=== PATIENT | female | born 1935 | race Caucasian/White ===

== ENCOUNTER 2016-11-25 12:05 | Inpatient (IN) | payer MEDICARE ==
[~2016-11-25] VITALS: Ht 170.2 cm; Wt 67.8 kg
[2016-11-25 12:39] VITALS: BP 149/68; PULSE 80; RESP 16; TEMP 98.4; O2SAT 99
[2016-11-25] MEDS ORDERED: IRBE150T15 PO (12:39)
[2016-11-25 12:58] LABS: AUTOMATED NEUTROPHIL # 9.9 TH/MM3 (1.8-7.7); BASOPHIL # 0.5 TH/MM3 (0-0.2); BASOPHIL % 3.7 % (0.0-2.0); EOSINOPHIL % 0.2 % (0.0-4.0); HEMO FLAGS DIFF FINAL; LYMPH % 8.5 % (9.0-44.0); LYMPHOCYTE # 1.1 TH/MM3 (1.0-4.8); MEAN CELL VOLUME 85.6 FL (80.0-100.0); MEAN CORPUSCULAR HGB CONC 32.8 % (32.0-36.0); NEUT % 78.6 % (16.0-70.0); PLATELET COUNT 180 TH/MM3 (150-450); RED CELL DISTRIBUTION WIDTH 13.9 % (11.6-17.2); WHITE BLOOD COUNT 12.6 TH/MM3 (4.0-11.0)
[2016-11-25 13:05] LABS: CHLORIDE 106 MEQ/L (98-107); POTASSIUM 3.7 MEQ/L (3.5-5.1); SODIUM (NA) 139 MEQ/L (136-145)
[2016-11-25 13:09] LABS: ANION GAP 7 MEQ/L (5-15); BICARBONATE 26.1 MEQ/L (21.0-32.0); BLOOD UREA NITROGEN 23 MG/DL (7-18)
[2016-11-25 13:12] LABS: ALT (GPT) 18 U/L (10-53); AST (GOT) 17 U/L (15-37); GLOMERULAR FILTRATION RATE 82 ML/MIN (>89)
[2016-11-25 13:13] LABS: TOTAL BILIRUBIN ADULT 0.7 MG/DL (0.2-1.0)
[2016-11-25 13:15] LABS: ALKALINE PHOSPHATASE 50 U/L (45-117)
--- NOTE | 2016-11-25 13:26 | PD ---
HPI Chief Complaint: Altered Mental Status Time Seen by Provider: 12:21 Travel History International Travel<30 days: No Contact w/Intl Traveler<30days: No Traveled to known affect area: No History of Present Illness HPI This is an 81-year-old female who presents to the emergency department with confusion. The patient is unable to provide much history. She says she doesn' t know who called and she says she feels fine. Per [facility] someone called and told them that she was more confused than usual. PFSH Past Medical History Diminished Hearing: No Hypertension: Yes Tetanus Vaccination: Unknown Influenza Vaccination: No ?: Not Past Surgical History Oral Surgery: Yes Social History Alcohol Use: Yes (rarely) Tobacco Use: No Substance Use: No Allergies-Medications (Allergen,Severity, Reaction): Coded Allergies: No Known Allergies (Unverified , 11/25/16) Reported Meds & Prescriptions Reported Meds & Active Scripts Active Reported Irbesartan 150 Mg Tab 150 Mg PO DAILY Review of Systems ROS Limitations: Poor Historian Physical Exam Narrative GENERAL:Well appearing, no acute distress SKIN: Focused skin assessment warm and dry. HEAD: Atraumatic. Normocephalic. EYES: Pupils equal and round. No injection or drainage. ENT: Moist mucous membranes NECK: Trachea midline. CARDIOVASCULAR: Regular rate and rhythm. No murmur appreciated. RESPIRATORY: Clear to auscultation. Breath sounds equal bilaterally. GASTROINTESTINAL: Abdomen soft, non-tender, nondistended. MUSCULOSKELETAL: No obvious deformities. NEUROLOGICAL: Confused but oriented to person and place, thinks it is 2018 but know the month. Knows she is at [facility].Can't describe details of her evening or how she arrived here. Gets confused, trails off tangentially, and has some word finding difficulty. No dysarthria. No obvious cranial nerve deficits. No upper or lower extremity drift. No upper extremity ataxia. PSYCHIATRIC: Appropriate mood and affect; insight and judgment normal. Data Data Last Documented VS Vital Signs Date Time Temp Pulse Resp B/P (MAP) Pulse Ox O2 Delivery O2 Flow Rate FiO2 11/25/16 15:05 76 16 139/67 (91) 99 11/25/16 12:[address] Brain W/O Iv Contrast(Rout) (11/25/16 ) Complete Blood Count With Diff (11/25/16 12:21) Comprehensive Metabolic Panel (11/25/16 12:21) ^ Insert Iv (11/25/16 12:21) Urinalysis - C+S If Indicated (11/25/16 12:21) Cath For Specimen (11/25/16 13:53) Sodium Chlor 0.9% 1000 Ml Inj (Ns 1000 M (11/25/16 15:00) Admit Order (Ed Use Only) (11/25/16 15:56) Labs Laboratory Tests Test 11/25/16 12:50 11/25/16 15:34 White Blood Count 12.6 TH/MM3 Red Blood Count 4.20 MIL/MM3 Hemoglobin 11.8 GM/DL Hematocrit 36.0 % Mean Corpuscular Volume 85.6 FL Mean Corpuscular Hemoglobin 28.0 PG Mean Corpuscular Hemoglobin Concent 32.8 % Red Cell Distribution Width 13.9 % Platelet Count 180 TH/MM3 Mean Platelet Volume 9.9 FL Neutrophils (%) (Auto) 78.6 % Lymphocytes (%) (Auto) 8.5 % Monocytes (%) (Auto) 9.0 % Eosinophils (%) (Auto) 0.2 % Basophils (%) (Auto) 3.7 % Neutrophils # (Auto) 9.9 TH/MM3 Lymphocytes # (Auto) 1.1 TH/MM3 Monocytes # (Auto) 1.1 TH/MM3 Eosinophils # (Auto) 0.0 TH/MM3 Basophils # (Auto) 0.5 TH/MM3 CBC Comment DIFF FINAL Differential Comment Blood Urea Nitrogen 23 MG/DL Creatinine 0.69 MG/DL Random Glucose 121 MG/DL Total Protein 7.3 GM/DL Albumin 3.6 GM/DL Calcium Level 8.9 MG/DL Alkaline Phosphatase 50 U/L Aspartate Amino Transf (AST/SGOT) 17 U/L Alanine Aminotransferase (ALT/SGPT) 18 U/L Total Bilirubin 0.7 MG/DL Sodium Level 139 MEQ/L Potassium Level 3.7 MEQ/L Chloride Level 106 MEQ/L Carbon Dioxide Level 26.1 MEQ/L Anion Gap 7 MEQ/L Estimat Glomerular Filtration Rate 82 ML/MIN [facility] Medical Decision Making Medical Screen Exam Complete: Yes Emergency Medical Condition: Yes Interpretation(s) Afebrile, no tachycardia, mild hypertension Leukocytosis 78% neutrophils Electrolytes are reassuring CT head is unremarkable Differential Diagnosis TIA, stroke, dementia, urinary tract infection Narrative Course This is an 81-year-old female who presents to the emergency department with increasing confusion. She is placed on a monitor and an IV was established. Labs are obtained which demonstrated a mild leukocytosis. CT of the head was unremarkable. Patient's friend came to the bedside and agrees that the patient is acting strangely, having some trouble with her speech and doesn't seem herself. I think the patient requires admission for stroke evaluation. Patient also likely doesn't belong in independent living and would benefit from assisted living if this is in fact just underlying dementia. Physician Communication Physician Communication Discussed with Dr. Kimbrough Diagnosis Primary Impression: Aphasia Admitting Information Admitting Physician Requests: Admit Unique Garcia MD Nov 25, 2016 13:26
--- NOTE | 2016-11-25 13:30 | RADRPT ---
EXAM DATE/TIME: 11/25/2016 13:16 [facility] COMPARISON: No previous studies available for comparison. INDICATIONS : Altered mental status. RADIATION DOSE: 59.28 CTDIvol (mGy) MEDICAL HISTORY : Hypertension. SURGICAL HISTORY : None. ENCOUNTER: Initial ACUITY: 1 day PAIN SCALE: 0/10 LOCATION: cranial TECHNIQUE: Multiple contiguous axial images were obtained of the head. Using automated exposure control and adj ustment of the mA and/or kV according to patient size, radiation dose was kept as low as reasonably a chievable to obtain optimal diagnostic quality images. DICOM format image data is available electro nically for review and comparison. FINDINGS: CEREBRUM: The ventricles are normal for age. No evidence of midline shift, mass lesion, hemorrhage or acute in farction. No extra-axial fluid collections are seen. POSTERIOR FOSSA: The cerebellum and brainstem are intact. The 4th ventricle is midline. The cerebellopontine angle i s unremarkable. EXTRACRANIAL: The visualized portion of the orbits is intact. SKULL: The calvaria is intact. No evidence of skull fracture. CONCLUSION: Negative for acute process. Gerardo Beaver MD FACR on November 25, 2016 at 13:28 Board Certified Radiologist. This report was verified electronically.
[2016-11-25] MEDS ORDERED: SODIUM CHLOR 0.9% 1000 ML INJ 1,000 ML IV ONE (15:00)
[2016-11-25 15:05] VITALS: BP 139/67; PULSE 76; RESP 16; O2SAT 99
[2016-11-25 15:54] LABS: BLOOD, URINE MOD (NEG); GLUCOSE,URINE NEG (NEG); KETONE, URINE NEG (NEG); NITRITE,URINE NEG (NEG); PH, URINE 6.5 (5.0-8.5)
[2016-11-25 16:01] LABS: RBC, URINE 0-3 /hpf (0-3); URINE COLOR YELLOW (YELLW/STRAW)
[2016-11-25 16:02] LABS: COMMENT (UR) CULT NOT INDICATED; CULTURE IF INDICATED CULT NOT INDICATED; SQUAMOUS EPITHELIAL CELL URINE 0-5 /hpf (0-5)
[2016-11-25 16:13] VITALS: BP 130/63; PULSE 86; RESP 18; O2SAT 98
[2016-11-25 17:28] VITALS: BP 133/72; PULSE 76; RESP 24; TEMP 97.7; O2SAT 97
[2016-11-25] MEDS ORDERED: ENALAPRILAT 1.25 MG/ML VIAL IV PUSH PRN (18:00)
[2016-11-25] MEDS ORDERED: SODIUM CHLORIDE 0.9% FLUSH 5 ML FLUSH IV FLUSH PRN (18:00)
[2016-11-25] MEDS ORDERED: DEXTROSE 50% IN WATER 50 ML VIAL(D50) IV PUSH PRN (18:00)
[2016-11-25] MEDS ORDERED: GLUCAGON 1 MG/ML VIAL OTHER PRN (18:00)
[2016-11-25] MEDS ORDERED: LABETALOL HCL 100 MG/20 ML VIAL IV PUSH PRN (18:00)
--- NOTE | 2016-11-25 18:40 | HHI.HP ---
[facility] Estrella Ferrell MD Admission Diagnosis aphasia Diagnoses: (1) Confusion Diagnosis: Principal (2) Aphasia Diagnosis: Principal Chief Complaint: Patient brought here because of "difference of opinion about my confusion" Travel History International Travel<30 Days: No Contact w/Intl Traveler <30 Da: No Traveled to Known Affected Are: No History of Present Illness Written by Bon Rodrigues, acting as scribe for Dr. Zambrano on 11/25/16 at 18:32. 81-year-old female with known history of hypertension who was brought to the hospital by [facility] because of confusion. Patient denies any symptoms at this time. However records indicate that she does not know who called the ambulance or why she is at the hospital because she feels fine. Records indicate that someone called [facility] again told them that she appears to be more confused than usual. Patient is alert person, November, not the year, and she does not know what place she is in. A friend is at bedside, patient does know her friend's name. Her friend is indicate that she does appearing more confused than normal. Patient is having a difficult time and remembering things and delayed speech. However there is no slurred speech. Patient denies any symptoms. Denies any unilateral weakness, paresthesia, difficulty ambulation, facial droop. She did have a headache last night prior to going to bed. Patient had workup done emergency department without any significant abnormality. Is recommended by ER physician the patient be admitted for neurological workup. Review of Systems Neurologic: COMPLAINS OF: Speech Problems Except as stated in HPI: all other systems reviewed are Neg Past Family Social History Past Medical History Hypertension Past Surgical History Oral surgery Reported Medications Reported Meds & Active Scripts Active Reported Irbesartan 150 Mg Tab 150 Mg PO DAILY Allergies: Coded Allergies: No Known Allergies (Unverified , 11/25/16) Family History Reviewed and unremarkable Social History No indication of any tobacco or illicit drug use. Does drink alcohol rarely Physical Exam Vital Signs Vital Signs Date Time Temp Pulse Resp B/P (MAP) Pulse Ox O2 Delivery O2 Flow Rate FiO2 11/25/16 17:20 11/25/16 16:13 86 18 130/63 (85) 98 Room Air 11/25/16 15:05 76 16 139/67 (91) 99 11/25/16 12:39 98.4 80 16 149/68 (95) 99 Physical Exam GENERAL: Well-developed, well-nourished, in no acute distress. alert and orientated to person, month, not to year or place. She does know her friends named that is sitting next to her HEENT: Head is normocephalic without any lesions or masses noted. Facial features are symmetric. Eyes: Pupils equal round reactive to light. Extraocular muscles are intact. Conjunctivae were clear. Oropharyngeal: Pharynx without any erythema edema. Tongue is midline without deviation. Buccal mucosa is moist without any masses or lesions NECK: Supple without any masses. Trachea midline no deviation. No JVD, no bruits are appreciated CARDIAC: Regular rhythm, regular rate. S1/S2 are heard. No murmurs gallops or rubs. LUNGS: Clear to auscultation bilaterally. No wheeze, rhonchi or rales. No use of accessory muscles on inspiration or expiration. ABDOMEN: Soft, nontender. Nondistended. Bowel sounds heard in all 4 quadrants. No organomegaly or masses. Negative rebound, negative guarding EXTREMITIES: No edema, pulses are equal bilaterally. No cyanosis or clubbing NEUROLOGY: Mood and affect appear appropriate. Cranial nerves II through XII grossly intact. Muscle strength 5/5 in upper and lower extremities bilaterally. Deep tendon reflexes are 2+ in upper and lower extremities bilaterally. Negative [facility] Laboratory Tests Test 11/25/16 12:50 11/25/16 15:34 White Blood Count 12.6 Red Blood Count 4.20 Hemoglobin 11.8 Hematocrit 36.0 Mean Corpuscular Volume 85.6 Mean Corpuscular Hemoglobin 28.0 Mean Corpuscular Hemoglobin Concent 32.8 Red Cell Distribution Width 13.9 Platelet Count 180 Mean Platelet Volume 9.9 Neutrophils (%) (Auto) 78.6 Lymphocytes (%) (Auto) 8.5 Monocytes (%) (Auto) 9.0 Eosinophils (%) (Auto) 0.2 Basophils (%) (Auto) 3.7 Neutrophils # (Auto) 9.9 Lymphocytes # (Auto) 1.1 Monocytes # (Auto) 1.1 Eosinophils # (Auto) 0.0 Basophils # (Auto) 0.5 CBC Comment DIFF FINAL Differential Comment Blood Urea Nitrogen 23 Creatinine 0.69 Random Glucose 121 Total Protein 7.3 Albumin 3.6 Calcium Level 8.9 Alkaline Phosphatase 50 Aspartate Amino Transf (AST/SGOT) 17 Alanine Aminotransferase (ALT/SGPT) 18 Total Bilirubin 0.7 Sodium Level 139 Potassium Level 3.7 Chloride Level 106 Carbon Dioxide Level 26.1 Anion Gap 7 Estimat Glomerular Filtration Rate 82 Urine Color YELLOW Urine Turbidity CLEAR Urine pH 6.5 Urine Specific [place] 1.024 Urine Protein NEG Urine Glucose (UA) NEG Urine Ketones NEG Urine Occult Blood MOD Urine Nitrite NEG Urine Bilirubin NEG Urine Leukocyte Esterase TRACE Urine RBC 0-3 Urine WBC 3-5 Urine Squamous Epithelial Cells 0-5 Microscopic Urinalysis Comment CULT NOT INDICATED Result Diagram: 11/25/16 1250 11/25/16 1250 Imaging Last Impressions Head CT 11/25/16 0000 Signed Impressions: Service Date/Time: Friday, November 25, 2016 13:16 - CONCLUSION: Negative for acute process. Gerardo Beaver MD FACR Caprini VTE Risk Assessment Caprini VTE Risk Assessment: Mod/High Risk (score >= 2) Caprini Risk Assessment Model Point Value = 1 Point Value = 2 Point Value = 3 Point Value = 5 Age 41-60 Minor surgery BMI > 25 kg/m2 Swollen legs Varicose veins or History of unexplained or recurrent spontaneous Oral contraceptives or hormone replacement Sepsis (< 1 month) Serious lung disease, including pneumonia (< 1 month) Abnormal pulmonary function Acute myocardial infarction Congestive heart failure (< 1 month) History of inflammatory bowel disease Medical patient at bed rest Age 61-74 Arthroscopic surgery Major open surgery (> 45 min) Laparoscopic surgery (> 45 min) Malignancy Confined to bed (> 72 hours) Immobilizing plaster cast Central venous access Age >= 75 History of VTE Family history of VTE Factor V Leiden Prothrombin [id number] Lupus anticoagulant Anticardiolipin antibodies Elevated serum homocysteine Heparin-induced thrombocytopenia Other congenital or acquired thrombophilia Stroke (< 1 month) Elective arthroplasty Hip, pelvis, or leg fracture Acute spinal cord injury (< 1 month) Prophylaxis Regimen Total Risk Factor Score Risk Level Prophylaxis Regimen 0-1 Low Early ambulation 2 Moderate Order ONE of the following: *Sequential Compression Device (SCD) *Heparin 5000 units SQ BID 3-4 Higher Order ONE of the following medications: *Heparin 5000 units SQ TID *Enoxaparin/Lovenox 40 mg SQ daily (WT < 150 kg, CrCl > 30 mL/min) *Enoxaparin/Lovenox 30 mg SQ daily (WT < 150 kg, CrCl > 10-29 mL/min) *Enoxaparin/Lovenox 30 mg SQ BID (WT < 150 kg, CrCl > 30 mL/min) AND/OR *Sequential Compression Device (SCD) 5 or more Highest Order ONE of the following medications: *Heparin 5000 units SQ TID (Preferred with Epidurals) *Enoxaparin/Lovenox 40 mg SQ daily (WT < 150 kg, CrCl > 30 mL/min) *Enoxaparin/Lovenox 30 mg SQ daily (WT < 150 kg, CrCl > 10-29 mL/min) *Enoxaparin/Lovenox 30 mg SQ BID (WT < 150 kg, CrCl > 30 mL/min) AND *Sequential Compression Device (SCD) Assessment and Plan Assessment and Plan Stroke like symptoms Unknown etiology this time, no signs of any infection, will need to rule out neurological component such as CVA, TIA CT scan does not indicate any acute abnormality We'll obtain MRI/MRA, carotid ultrasound, echocardiogram We'll obtain further laboratory studies to include B12, folate, sedimentation rate, RPR, lipid panel We'll get PT/OT/ST evaluations Start aspirin 160 mg daily Start Lipitor 10 mg nightly Permissive hypertension Hypertension Permissive at this time Hold home medication 48 hours DVT prevention Sequential compression devices This note was transcribed by jus Rodrigues. I, Jerald Zambrano, personally performed the history, physical exam, and medical decision making; and confirmed the accuracy of information in the transcribed note. Authenticated by Jerald Zambrano on 11/25/16 at 1855. All orders entered by Zachary Rodrigues were at my discretion. Physician Certification 2 Midnight Certification Type: Admission for Inpatient Services Order for Inpatient Services The services are ordered in accordance with Medicare regulations or non- Medicare payer requirements, as applicable. In the case of services not specified as inpatient-only, they are appropriately provided as inpatient services in accordance with the 2-midnight benchmark. Estimated LOS (days): 2 days is the estimated time the patient will need to remain in the hospital, assuming treatment plan goals are met and no additional complications. Post-Hospital Plan: Not yet determined Bon Rodrigues Nov 25, 2016 18:40 Jerlad Zambrano MD Dec 01, 2016 08:15
[2016-11-25 19:03] LABS: CREATINE KINASE 113 U/L (26-192)
[2016-11-25 20:00] VITALS: BP 131/49; PULSE 63; RESP 20; TEMP 98.3; O2SAT 96
[2016-11-25] MEDS: ASPIRIN 81 MG CHEW TAB PO SCH (20:51)
[2016-11-25] MEDS: SODIUM CHLORIDE 0.9% FLUSH 5 ML FLUSH IV FLUSH SCH (20:52)
[2016-11-25] MEDS: INSULIN ASPART SUPPLEMENTAL SCALE SQ SCH (20:52)
[2016-11-25] MEDS: ATORVASTATIN 10 MG TAB PO SCH (20:52)
[2016-11-25 20:55] VITALS: O2SAT 99
[2016-11-26] VITALS (9 sets, daily range): BP systolic 100–129; BP diastolic 47–61; PULSE 52–98; RESP 16–20; TEMP 96.2–98.7; O2SAT 94–99
[2016-11-26 00:19] LABS: CREATINE KINASE 122 U/L (26-192)
[2016-11-26] MEDS: INSULIN ASPART SUPPLEMENTAL SCALE SQ SCH ×4 (08:00→21:00)
[2016-11-26] MEDS: ASPIRIN 81 MG CHEW TAB PO SCH (08:51)
[2016-11-26] MEDS: SODIUM CHLORIDE 0.9% FLUSH 5 ML FLUSH IV FLUSH SCH ×2 (08:52→21:00)
[2016-11-26 10:17] LABS: HDL CHOLESTEROL 67.9 MG/DL (40.0-60.0)
--- NOTE | 2016-11-26 10:28 | RADRPT ---
EXAM DATE/TIME: 11/26/2016 10:04 [facility] COMPARISON: No previous studies available for comparison. INDICATIONS : CVA. Right sided weakness. MEDICAL HISTORY : Hypertension. SURGICAL HISTORY : Cataracts. ENCOUNTER: Initial ACUITY: 1 day PAIN SCORE: 0/10 LOCATION: Head. Please note a normal MRA of the brain does not entirely exclude the possibility of a small aneurysm, nor the possibility of distal intracranial vessel disease. TECHNIQUE: 3D time of flight MRA was performed. Source images, multiplanar STS MIP, and 3D volume MIP reconstru ctions were reviewed. FINDINGS: There is excellent visualization of the major intracranial arteries out to the second-order branch ve ssels. There is no evidence for aneurysm, vessel truncation or stenosis, and no evidence for vascula r malformation. CONCLUSION: 1. Unremarkable MR angiography of the brain. Eliceo Wynn MD on November 26, 2016 at 10:25 Board Certified Radiologist. This report was verified electronically.
--- NOTE | 2016-11-26 10:30 | RADRPT ---
EXAM DATE/TIME: 11/26/2016 10:04 [facility] COMPARISON: No previous studies available for comparison. INDICATIONS : CVA. Right sided weakness. MEDICAL HISTORY : Hypertension. SURGICAL HISTORY : Cataracts. ENCOUNTER: Initial ACUITY: 1 day PAIN SCORE: 0/10 LOCATION: Head. TECHNIQUE: Multiplanar, multisequence MRI of the brain was performed without contrast. FINDINGS: MRI of the brain is performed in sagittal, axial and coronal planes. The craniocervical junction and midline structures are unremarkable. Diffusion weighted images demonstrate no abnormality. There is n o evidence of acute cortical infarction, acute hemorrhage, mass effect or midline shift is seen. Post erior fossa structures are unremarkable. There is periventricular hyperintensity on the T2 weighted i mages consistent with small vessel vascular disease significantly more than expected in a patient of this age. CONCLUSION: 1. No evidence of acute intracranial pathology. Chronic ischemic changes as above. Eliceo Wynn MD on November 26, 2016 at 10:27 Board Certified Radiologist. This report was verified electronically.
--- NOTE | 2016-11-26 10:58 | RADRPT ---
EXAM DATE/TIME: 11/26/2016 07:57 [facility] COMPARISON: No previous studies available for comparison. INDICATIONS : Cerebrovascular accident. MEDICAL HISTORY : Hypertension. Alcohol use. SURGICAL HISTORY : Oral surgery. ENCOUNTER: Initial ACUITY: 2 days PAIN SCORE: 0/10 LOCATION: Bilateral neck PEAK SYSTOLIC VELOCITIES (cm/sec): ICA/CCA RATIO: Right: 0.9 Left: 0.9 ICA: Right: 78 Left: 87 CCA: Right: 90 Left: 100 ECA: Right: 80 Left: 84 VERTEBRAL: Right: 63 antegrade Left: 54 antegrade Elevated flow velocities and ICA/CCA ratios have been found to correlate with increased degrees of vessel stenosis, calculated as percentage of diameter relative to a normal segment of distal ICA/CCA FINDINGS: RIGHT CAROTID: No significant stenosis is visualized. There is minimal calcified atherosclerotic plaque. The wavefo rosi are within normal limits. LEFT CAROTID: No significant stenosis is visualized. There is minimal calcified atherosclerotic plaque. The wavefor ms are within normal limits. VERTEBRAL ARTERIES: Antegrade flow is seen in both vertebral arteries. MISCELLANEOUS: None. CONCLUSION: 1. Minimal atherosclerotic plaquing seen at the bifurcations. 2. No hemodynamically significant carotid artery stenosis identified. Urbano Beaver MD on November 26, 2016 at 10:55 Board Certified Radiologist. This report was verified electronically.
--- NOTE | 2016-11-26 12:42 | ECHRPT ---
Indication: cva/tia CONCLUSIONS The left ventricular systolic function is low normal with an estimated ejection fraction in the rang e of 50- 55%. Normal left ventricular size. Mild mitral valve regurgitation. Mild aortic valve regurgitation. There is mild tricuspid valve regurgitation. BP: / HR: Rhythm: MEASUREMENTS (Male / Female) Normal Values Technical Quality:Good 2D ECHO LV Diastolic Diameter PLAX 4.9 cm 4.2 - 5.9 / 3.9 - 5.3 cm LV Systolic Diameter PLAX 3.9 cm IVS Diastolic Thickness 1.2 cm 0.6 - 1.0 / 0.6 - 0.9 cm LVPW Diastolic Thickness 1.1 cm 0.6 - 1.0 / 0.6 - 0.9 cm LV Relative Wall Thickness 0.5 RV Internal Dim ED PLAX 3.2 cm M-MODE Aortic Root Diameter MM 3.0 cm LA Systolic Diameter MM 3.5 cm LA Ao Ratio MM 1.2 AV Cusp Separation MM 2.1 cm DOPPLER AI Peak Velocity 344.0 cm/s AI Peak Gradient 47.3 mmHg AI Pressure Half Time 696.0 ms Mitral E Point Velocity 50.3 cm/s Mitral A Point Velocity 59.2 cm/s Mitral E to A Ratio 0.8 LV E' Lateral Velocity 8.9 cm/s Mitral E to LV E' Lateral Ratio 5.7 LV E' Septal Velocity 7.4 cm/s Mitral E to LV E' Septal Ratio 6.8 TR Peak Velocity 261.0 cm/s TR Peak Gradient 27.2 mmHg Right Atrial Pressure 10.0 mmHg Pulmonary Artery Systolic Pressu 37.2 mmHg Right Ventricular Systolic Press 37.2 mmHg FINDINGS LEFT VENTRICLE The left ventricular systolic function is low normal with an estimated ejection fraction in the rang e of 50- 55%. Normal left ventricular size. RIGHT VENTRICLE Normal right ventricular size and systolic function. LEFT ATRIUM The left atrial size is normal. RIGHT ATRIUM The right atrial size is normal. ATRIAL SEPTUM Normal atrial septal thickness without atrial level shunting by limited color doppler interrogation. AORTA The aortic root and proximal ascending aorta are normal in size on limited imaging. MITRAL VALVE Structurally normal mitral valve. Mild mitral valve regurgitation. AORTIC VALVE Trileaflet aortic valve. Mild aortic valve regurgitation. TRICUSPID VALVE Structurally normal tricuspid valve. There is mild tricuspid valve regurgitation. PULMONARY VALVE No pulmonary valve regurgitation or stenosis. VESSELS The inferior vena cava is normal in size. PERICARDIUM No pericardial effusion. Gordon Luo MD, FACC (Electronically Signed) Final Date:26 November 2016 12:41
--- NOTE | 2016-11-26 15:50 | HHI.FF ---
Face to Face Verification Diagnosis: (1) Dementia (2) Confusion (3) Aphasia Speech Therapy Order: To Improve: Speech and communication skills, Cognitive skills Home Health Nursing Order: Signs/symptoms of disease process Nursing assessment with vital signs I have seen patient Tarah Sharp on 11/26/16. My clinical findings support the need for the requested home health care services because: Impaired cognition/judgement I certify that my clinical findings support that this patient is homebound because: Impaired cognitive ability/safety Jerald Zambrano MD Nov 26, 2016 15:50
--- NOTE | 2016-11-26 16:47 | HHI.PR ---
Subjective Remarks No acute deterioration since last night per nursing. Stroke workup has been negative. Patient herself denies any new complaints. Discussed with both PT and OT, stable to go home from their standpoint but but they do note very concerning difficulty finding words and loss and her thought processes. Objective Vital Signs Date Time Temp Pulse Resp B/P (MAP) Pulse Ox O2 Delivery O2 Flow Rate FiO2 11/26/16 12:00 96.3 57 18 100/53 (69) 98 11/26/16 08:37 98.0 98 16 104/50 (68) 98 11/26/16 07:44 96 21 11/26/16 04:00 98.7 52 18 100/48 (65) 94 11/26/16 00:00 56 11/26/16 00:00 98.0 56 16 102/47 (65) 94 11/25/16 20:55 99 21 11/25/16 20:00 63 11/25/16 20:00 98.3 63 20 131/49 (76) 96 11/25/16 17:28 97.7 76 24 133/72 (92) 97 11/25/16 17:20 I/O 11/25/16 11/25/16 11/25/16 11/26/16 11/26/16 11/26/16 06:59 14:59 22:59 06:59 14:59 22:59 Intake Total 1000 ml 240 ml 750 ml Balance 1000 ml 240 ml 750 ml Intake Oral 240 ml 750 ml IV Total 1000 ml # Voids 2 # Bowel Movements 1 Result Diagram: 11/25/16 1250 11/25/16 1250 Imaging Last Impressions Head Magnetic Resonance Angiography 11/26/16 0000 Signed Impressions: Service Date/Time: November 10:04 - CONCLUSION: 1. Unremarkable MR angiography of the brain. Eliceo Wynn MD Carotid Artery Ultrasound 11/26/16 0000 Signed Impressions: Service Date/Time: November 07:57 - CONCLUSION: 1. Minimal atherosclerotic plaquing seen at the bifurcations. 2. No hemodynamically significant carotid artery stenosis identified. Urbano Beaver MD Brain MRI 11/26/16 0000 Signed Impressions: Service Date/Time: November 10:04 - CONCLUSION: 1. No evidence of acute intracranial pathology. Chronic ischemic changes as above. Eliceo Wynn MD Head CT 11/25/16 0000 Signed Impressions: Service Date/Time: Friday, November 25, 2016 13:16 - CONCLUSION: Negative for acute process. Gerardo Beaver MD FACR Objective Remarks NAD unlabored breathing AOX3 no facial droop, no slurred speech She seems to have an awfully great amount of difficulty finding her words but does not have any slurred speech. A/P Assessment and Plan Aphasia Stroke workup negative, no significant lab abnormalities. We'll have speech reevaluate the patient for cognition deficits. Spoke extensively with patient's [id number], case management, and speech therapy, - agree that the patient is not a safe discharge given that she lives by herself and there is no family nearby. We'll arrange for home care since the patient has impaired cognition as evident on physical exam and throughout multiple evaluations of other rehabilitation modalities. aspirin 160 mg daily Lipitor 10 mg nightly Hypertension resume home medication 48 hours DVT prevention Sequential compression devices Jerald Zambrano MD Nov 26, 2016 16:47
[2016-11-26 20:42] LABS: FREE T3 1.93 PG/ML (2.18-3.98); FREE T4 0.99 NG/DL (0.76-1.46)
[2016-11-26] MEDS: ATORVASTATIN 10 MG TAB PO SCH (22:19)
[2016-11-26 22:47] LABS: HEMOGLOBIN A1b 1.6 %; HEMOGLOBIN Ao 85.4 %; HEMOGLOBIN LA1C 2.1 %; HEMOGLOBIN P3 5.3 %
[2016-11-27] VITALS (7 sets, daily range): BP systolic 118–150; BP diastolic 59–82; PULSE 59–79; RESP 16–20; TEMP 95.6–97.9; O2SAT 96–100
[2016-11-27] MEDS: INSULIN ASPART SUPPLEMENTAL SCALE SQ SCH ×4 (08:00→21:00)
[2016-11-27] MEDS: ASPIRIN 81 MG CHEW TAB PO SCH (10:05)
[2016-11-27] MEDS: SODIUM CHLORIDE 0.9% FLUSH 5 ML FLUSH IV FLUSH SCH ×2 (10:05→21:00)
--- NOTE | 2016-11-27 12:08 | HHI.PR ---
Subjective Remarks No acute deterioration since last night per nursing. However speech therapy discussed with me that the patient is experiencing substantial thought disorganization and seems to lose track of her conversations. When I approach and even passed by the room the patient seems to be standing by the door staring into the hallway even after my visit with her. Family is unable to have her supervised at home at this time if she were to be discharged. During her orientation test, the patient is unable to adequately explain the reason for her admission, says that some people saw her and just decided to bring her to the hospital after she was trying to find her car keys in a parking lot. Objective Vital Signs Date Time Temp Pulse Resp B/P (MAP) Pulse Ox O2 Delivery O2 Flow Rate FiO2 11/27/16 08:55 97.9 59 16 150/78 (102) 99 11/27/16 04:00 97.6 67 20 140/66 (90) 99 11/27/16 00:00 97.7 67 20 118/59 (78) 100 11/26/16 22:00 62 11/26/16 20:50 98 21 11/26/16 20:00 97.8 56 20 129/61 (83) 99 11/26/16 16:00 96.2 59 18 101/49 (66) 99 I/O 11/26/16 11/26/16 11/26/16 11/27/16 11/27/16 11/27/16 06:59 14:59 22:59 06:59 14:59 22:59 Intake Total 240 ml 750 ml 240 ml Balance 240 ml 750 ml 240 ml Intake Oral 240 ml 750 ml 240 ml # Voids 2 2 2 # Bowel Movements 1 1 0 Result Diagram: 11/25/16 1250 11/25/16 1250 Objective Remarks NAD unlabored breathing AOX3 no facial droop, no slurred speech Still seems to have an awfully great amount of difficulty finding her words but does not have any slurred speech. A/P Assessment and Plan Aphasia Stroke workup negative, no significant lab abnormalities. RPR is negative. Cognitive deficits evident on speech eval, unsafe d/c for home by herself. Some concern for paranoid thoughts which is new problem seen per speech therapy , consulting psychiatry Hypertension home medications DVT prevention Sequential compression devices, early ambulation Jerald Zambrano MD Nov 27, 2016 12:08
[2016-11-27] MEDS: ATORVASTATIN 10 MG TAB PO SCH (21:48)
[2016-11-28 00:23] VITALS: BP 135/76; PULSE 80; RESP 16; TEMP 97.9; O2SAT 100
[2016-11-28 04:24] VITALS: BP 134/64; PULSE 63; RESP 18; TEMP 98; O2SAT 99
[2016-11-28 07:50] VITALS: BP 144/68; PULSE 68; RESP 20; TEMP 96; O2SAT 99
[2016-11-28] MEDS: INSULIN ASPART SUPPLEMENTAL SCALE SQ SCH (08:00)
[2016-11-28] MEDS: ASPIRIN 81 MG CHEW TAB PO SCH (08:41)
[2016-11-28 11:50] VITALS: BP 148/71; RESP 60; TEMP 96.2; O2SAT 99
--- NOTE | 2016-11-28 12:55 | PD.PSY.CON ---
Provisional Diagnosis Admission Date Nov 25, 2016 at 15:57 [place] I. Unspecified psychosis, r/o dementia [place] II. Deferred History of Present Illness Service Psychiatry Consult Requested By Reason for Consult Psychosis Primary Care Physician Estrella Ferrell MD HPI The patient is a 81-year-old woman, domiciled alone in [place], single, without any previous psychiatric history, no previous suicidal attempts , no psychotropics, with medical history of hypertension who was brought to the hospital by [facility] because of confusion. Patient denies any symptoms at this time. Neurological and medical workup is negative at this moment. Consulted to psychiatry due to agitation, paranoia and disorganized behavior. Patient seen for psychiatric evaluation, patient is calm, cooperative and pleasant. Patient does not remember the reason she is in the hospital. In fact , the patient stated that she is in the [employer] and she is surrounded by students. She says that the reason she is here "I have to do some work with my kids". Patient says that today is December [id number]. She does not know who was the sack filler. She is able to repeat 3 words, but unable to recall in 5 minutes later. Her concentration and attention seems to be intact at this moment. She could spell the word world back and forth. She also was able to count backwards, starting 100 and subtracting by 7. Her abstraction, language, semantic memory, she is also to be intact. However executive function impaired, with a clock drawing and trail making test. Patient reports good mood, she says that she is happy to be here. She denies suicidal and homicidal ideation, she denies visual and auditory hallucinations. No delusions or paranoia elicited at this moment. However, as per nurse in charge report, the patient has been agitated, at times verbally hostile, very paranoid about the staff difficult to handle. She denies the use of alcohol and illicit drugs. Review of Systems Constitutional: DENIES: Diaphoretic episodes, Fatigue, Fever, Weight gain, Weight loss, Chills, Dizziness, Change in appetite, Night Sweats Endocrine: DENIES: Abnorml menstrual pattern, Heat/cold intolerance, Polydipsia , Polyuria, Polyphagia Eyes: DENIES: Blurred vision, Diplopia, Eye inflammation, Eye pain, Vision loss , Photosensitivity, Double Vision Ears, nose, mouth, throat: DENIES: Tinnitus, Hearing loss, Vertigo, Nasal discharge, Oral lesions, Throat pain, Hoarseness, Ear Pain, Running Nose, Epistaxis, Sinus Pain, Toothache, Odynophagia Respiratory: DENIES: Apneas, Cough, Snoring, Wheezing, Hemoptysis, Sputum production, Shortness of breath Cardiovascular: DENIES: Chest pain, Palpitations, Syncope, Dyspnea on Exertion , PND, Lower Extremity Edema, Orthopnea, Claudication Gastrointestinal: DENIES: Abdominal pain, Black stools, Bloody stools, Constipation, Diarrhea, Nausea, Vomiting, Difficulty Swallowing, Anorexia Genitourinary: DENIES: Abnormal vaginal bleeding, Dysmenorrhea, Dyspareunia, Sexual dysfunction, Urinary frequency, Urinary incontinence, Urgency, Hematuria , Dysuria, Nocturia, Vaginal discharge Musculoskeletal: DENIES: Joint pain, Muscle aches, Stiffness, Joint Swelling, Back pain, Neck pain Integumentary: DENIES: Abnormal pigmentation, Pruritus, Rash, Nail changes, Breast masses, Breast skin changes, Nipple discharge Hematologic/lymphatic: DENIES: Bruising, Lymphadenopathy Immunologic/allergic: DENIES: Eczema, Urticaria Neurologic: DENIES: Abnormal gait, Headache, Localized weakness, Paresthesias, Seizures, Speech Problems, Tremor, Poor Balance Psychiatric: COMPLAINS OF: Confusion, Delusions, DENIES: Anxiety, Mood changes , Depression, Hallucinations, Agitation, Suicidal Ideation, Homicidal Ideation Past Family Social History Coded Allergies: No Known Allergies (Unverified , 11/25/16) Reported Medications Irbesartan (Irbesartan) 150 Mg Tab, 150 MG PO DAILY for Blood Pressure Management, #30 TAB 0 Refills 11/25/16 Current Medications Medications (Trade) Dose Ordered Sig/Lavon Route Start Time Stop Time Status Last Admin (NS Flush) 2 ml BID IV FLUSH 11/25/16 21:00 11/27/16 10:05 (NS Flush) 2 ml UNSCH PRN IV FLUSH 11/25/16 18:00 (Vasotec Inj) 1.25 mg Q4H PRN IV PUSH 11/25/16 18:00 (Trandate Inj) 10 mg Q2H PRN IV PUSH 11/25/16 18:00 (Aspirin Chew) 162 mg DAILY PO 11/25/16 18:00 11/28/16 08:41 (Lipitor) 10 mg HS PO 11/25/16 21:00 11/27/16 21:48 (NovoLOG SUPPLEMENTAL SCALE) 1 ACHS SQ 11/25/16 21:00 (D50w (Vial) Inj) 50 ml UNSCH PRN IV PUSH 11/25/16 18:00 (Glucagon Inj) 1 mg UNSCH PRN OTHER 11/25/16 18:00 Family Psych History Patient denies family psychiatric history Social History Patient was born and raised in [facility], she lives alone in [place] , she is single, 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 Patient's Strengths (min. 2) High level of education Physical Exam No psychomotor agitation or retardation, no tremors, no EPS, no stiffness, no gait disturbance Vital Signs Vital Signs Date Time Temp Pulse Resp B/P (MAP) Pulse Ox O2 Delivery O2 Flow Rate FiO2 11/28/16 11:50 96.2 60 148/71 (96) 99 11/28/16 07:50 68 11/27/16 20:43 21 11/25/16 16:13 Room Air Lab Results Reviewed Mental Status Examination Appearance: Appropriate Consciousness: Alert Orientation: x4 Motor Activity: Normal gait Speech: Unremarkable Language: Adequate Fund of Knowledge: Adequate Attention and Concentration: Adequate Memory: Impaired Mood: Appropriate Affect: Appropriate Thought Process & Associations: Intact Thought Content: Appropriate Hallucination Type: None Delusion Type: None Suicidal Ideation: No Suicidal Plan: No Suicidal Intention: No Homicidal Ideation: No Homicidal Plan: No Homicidal Intention: No Insight: Adequate Judgment: Adequate Assessment & Plan Problem List: (1) Unspecified psychosis ICD Codes: F29 - Unspecified psychosis not due to a substance or known physiological condition Assessment & Plan: On psychiatric evaluation patient is calm, cooperative, even pleasant. Patient denies symptomatology of depression, anxiety, molly or psychosis. Patient denies suicidal and homicidal ideation, she denies visual and auditory hallucinations. Patient presents with marked cognitive deficits as described above, she does not have any fluctuation of consciousness or attention deficit at this moment, but significant impairment in recent recall, orientation and executive function. Patient has reportedly been agitated, verbally aggressive and paranoid in the floor. Patient seems to be living alone , neglecting herself, no managing her medical medications are properly was probably due to her level of dementia and psychosis. At the moment of this evaluation the patient represents a danger to herself and she benefits of inpatient psychiatric admission for stabilization and safety. We'll start Seroquel 12.5 mg twice a day for psychosis. Collateral information is is still pending. She will be transferred to psychiatry was medically appropriate. The case was widely discussed with nurse in charge. Assessment & Plan Estimated LOS: days Orlando Herrera MD Nov 28, 2016 12:55
[2016-11-28] MEDS ORDERED: PILL SPLITTER OTHER PRN (13:15)
--- NOTE | 2016-11-28 14:11 | HHI.DS ---
Discharge Summary Admission Date Nov 25, 2016 at 15:57 Discharge Date: Nov 28, 2016 Admitting Diagnosis aphasia (1) Confusion ICD Code: R41.0 - Disorientation, unspecified Diagnosis: Principal (2) Aphasia ICD Code: R47.01 - Aphasia Diagnosis: Principal Status: Acute (3) Psychosis ICD Code: F29 - Unspecified psychosis not due to a substance or known physiological condition Status: Acute Procedures None Brief History - From Admission Written by Bon Rodrigues, acting as scribe for Dr. Zambrano on 11/25/16 at 18:32. 81-year-old female with known history of hypertension who was brought to the hospital by [facility] because of confusion. Patient denies any symptoms at this time. However records indicate that she does not know who called the ambulance or why she is at the hospital because she feels fine. Records indicate that someone called [facility] again told them that she appears to be more confused than usual. Patient is alert person, November, not the year, and she does not know what place she is in. A friend is at bedside, patient does know her friend's name. Her friend is indicate that she does appearing more confused than normal. Patient is having a difficult time and remembering things and delayed speech. However there is no slurred speech. Patient denies any symptoms. Denies any unilateral weakness, paresthesia, difficulty ambulation, facial droop. She did have a headache last night prior to going to bed. Patient had workup done emergency department without any significant abnormality. Is recommended by ER physician the patient be admitted for neurological workup. CBC/BMP: 11/25/16 1250 11/25/16 1250 Significant Findings Laboratory Tests Test 11/25/16 15:34 11/25/16 18:25 11/25/16 23:40 11/26/16 04:20 Urine Occult Blood MOD (NEG) Urine Leukocyte Esterase TRACE (NEG) Troponin I LESS THAN 0.02 NG/ML HDL Cholesterol 67.9 MG/DL (40.0-60.0) Free Triiodothyronine (T3) pg/dL 1.93 PG/ML (2.18-3.98) Thyroid Stimulating Hormone 3rd Gen 0.298 uIU/ML (0.358-3.740) PE at Discharge No acute distress with sitter and room Still has substantial difficulty finding words to respond with No facial droop, no slurred speech Hospital Course Patient was admitted initially for stroke workup which was negative. She was found to have substantial cognitive deficits on the other hand and eventually the patient began manifesting with delusional thoughts and hallucinations per nursing. Patient then was wanting to leave but demonstrated psychotic behavior in doing so since she is not able to verbalize her rationale appropriately. Psychiatry was consulted and agreed for transfer to psychiatric facility. Patient has met maximum benefit from hospitalization and is clinically stable for discharge to psychiatric care facility. Pt Condition on Discharge: Stable Discharge Disposition: Disc to Psych Care Fac Discharge Time: > 30 minutes Discharge Instructions DIET: Follow Instructions for: As Tolerated, No Restrictions Activities you can perform: Regular-No Restrictions Follow up Referrals: PCP Follow-up - 1 Week Continued Medications: Irbesartan (Irbesartan) 150 Mg Tab 150 MG PO DAILY for Blood Pressure Management, #30 TAB 0 Refills Jerald Zambrano MD Nov 28, 2016 14:11
--- NOTE | 2016-11-28 14:24 | HHI.DS ---
Discharge Summary Admission Date Nov 25, 2016 at 15:57 Admitting Diagnosis aphasia (1) Confusion ICD Code: R41.0 - Disorientation, unspecified Diagnosis: Principal (2) Aphasia ICD Code: R47.01 - Aphasia Diagnosis: Principal Status: Acute (3) Psychosis ICD Code: F29 - Unspecified psychosis not due to a substance or known physiological condition (4) Dementia ICD Code: F03.90 - Unspecified dementia without behavioral disturbance Brief History - From Admission Written by Bon Rodrigues, acting as scribe for Dr. Zambrano on 11/25/16 at 18:32. 81-year-old female with known history of hypertension who was brought to the hospital by [facility] because of confusion. Patient denies any symptoms at this time. However records indicate that she does not know who called the ambulance or why she is at the hospital because she feels fine. Records indicate that someone called [facility] again told them that she appears to be more confused than usual. Patient is alert person, November, not the year, and she does not know what place she is in. A friend is at bedside, patient does know her friend's name. Her friend is indicate that she does appearing more confused than normal. Patient is having a difficult time and remembering things and delayed speech. However there is no slurred speech. Patient denies any symptoms. Denies any unilateral weakness, paresthesia, difficulty ambulation, facial droop. She did have a headache last night prior to going to bed. Patient had workup done emergency department without any significant abnormality. Is recommended by ER physician the patient be admitted for neurological workup. CBC/BMP: 11/25/16 1250 11/25/16 1250 Significant Findings Laboratory Tests Test 11/25/16 15:34 11/25/16 18:25 11/25/16 23:40 11/26/16 04:20 Urine Occult Blood MOD (NEG) Urine Leukocyte Esterase TRACE (NEG) Troponin I LESS THAN 0.02 NG/ML HDL Cholesterol 67.9 MG/DL (40.0-60.0) Free Triiodothyronine (T3) pg/dL 1.93 PG/ML (2.18-3.98) Thyroid Stimulating Hormone 3rd Gen 0.298 uIU/ML (0.358-3.740) PE at Discharge No acute distress with sitter and room Still has substantial difficulty finding words to respond with No facial droop, no slurred speech Pt Condition on Discharge: Stable Discharge Disposition: Disc to Psych Care Fac Discharge Instructions DIET: Follow Instructions for: As Tolerated, No Restrictions Activities you can perform: Regular-No Restrictions Jerald Zambrano MD Nov 28, 2016 14:24
[2016-11-28 15:48] VITALS: BP 131/68; PULSE 67; RESP 20; TEMP 96.8; O2SAT 96
[2016-11-29] MEDS ORDERED: QUEtiapine FUMARATE 25 MG TAB PO SCH (09:00)
== END 2016-11-28 16:11 | DRG 884 ==
LOC: PHED 12:05 → PHEDA 15:57 → PHICU 17:10 → PH3A 11-26 04:58 → PH3B 11-27 16:06
PROVIDERS: ADMIT Hospitalist; ATTEND Hospitalist
DX: F03.90 Unspecified dementia, unspecified severity, without behavioral disturbance, psychotic disturbance, mood disturbance, and anxiety (principal); R47.01 Aphasia; I10 Essential (primary) hypertension; F29 Unspecified psychosis not due to a substance or known physiological condition
CPT/HCPCS: 70450; 70544; 70551; 80053; 80061; 81001; 82550; 82607; 82746; 82948; 83036; 84439; 84443; 84481; 84484; 85025; 85652; 86592; 93306; 93880; 94150; 96360; J7030

== ENCOUNTER 2016-11-28 15:18 | Inpatient (IN) | payer OTHER, MEDICARE ==
[~2016-11-28 15:18] MED LIST: IRBE150T15 PO
[2016-11-28 17:33] VITALS: BP 138/73; PULSE 62; RESP 18; TEMP 97.5
[2016-11-28] MEDS ORDERED: PILL SPLITTER OTHER PRN (17:45)
[2016-11-28] MEDS ORDERED: ALUMINUM/MAGNESIUM/SIMETH 30 ML CUP PO PRN (17:45)
[2016-11-28] MEDS ORDERED: MAGNESIUM HYDROXIDE SUSP 30 ML CUP PO PRN (17:45)
[2016-11-28] MEDS ORDERED: ACETAMINOPHEN 325 MG TAB PO PRN (17:45)
[2016-11-28] MEDS: QUEtiapine FUMARATE 25 MG TAB PO SCH (20:20)
[2016-11-28] MEDS: REMOVE OLD NICOTINE PATCH T-DERMAL SCH (20:24)
[2016-11-29 05:49] VITALS: BP 151/70; PULSE 61; RESP 17; TEMP 97.6; O2SAT 97
[2016-11-29] MEDS: QUEtiapine FUMARATE 25 MG TAB PO SCH ×2 (09:00→21:00)
[2016-11-29] MEDS: NICOTINE 21 MG/24 HR PATCH T-DERMAL SCH (09:00)
--- NOTE | 2016-11-29 11:33 | PD.CONS ---
HPI Service [place] [facility] Consult Requested By Reason for Consult medical management Primary Care Physician Estrella Ferrell MD Diagnoses: History of Present Illness patient is a 81 y/o female with history of hypertension, who was initially admitted to the hospital for confusion and aphasia. she had a negative neurological work-up at the time and later was discharged to the psych unit for further evaluation. at the time of my evaluation she was resting comfortably with no distress. she denied any chest pain, sob, abdominal pain, nausea or vomiting. d/w the RN and no acute issues reported. Review of Systems Constitutional: DENIES: Fever, Weight loss, Chills, Night Sweats Eyes: DENIES: Blurred vision, Diplopia, Vision loss, Double Vision Ears, nose, mouth, throat: DENIES: Tinnitus, Vertigo, Throat pain, Epistaxis Respiratory: DENIES: Apneas, Cough, Snoring, Wheezing, Hemoptysis, Sputum production, Shortness of breath Cardiovascular: DENIES: Chest pain, Palpitations, Syncope, Dyspnea on Exertion , PND, Lower Extremity Edema, Orthopnea, Claudication Gastrointestinal: DENIES: Abdominal pain, Black stools, Bloody stools, Constipation, Diarrhea, Nausea, Vomiting, Difficulty Swallowing, Anorexia Genitourinary: DENIES: Urinary frequency, Urgency, Hematuria, Dysuria Musculoskeletal: DENIES: Joint pain, Muscle aches, Stiffness, Joint Swelling Integumentary: DENIES: Rash Neurologic: DENIES: Abnormal gait, Headache, Localized weakness, Paresthesias, Seizures, Speech Problems, Tremor, Poor Balance Psychiatric: COMPLAINS OF: Confusion, DENIES: Anxiety, Mood changes, Depression , Hallucinations, Agitation, Suicidal Ideation, Homicidal Ideation, Delusions Past Family Social History Allergies: Coded Allergies: No Known Allergies (Unverified , 11/25/16) Past Medical History hypertension Reported Medications irbesartan Active Ordered Medications Current Medications Acetaminophen (Tylenol) 650 mg Q4H PRN PO Pain 1-5 or Temp >101F; Start at 17:45 Magnesium Hydroxide (Milk Of Magnesia Liq) 30 ml DAILY PRN PO CONSTIPATION; Start 11/28/16 at 17:45 Al Hydrox/Mg Hydrox/Simethicone (Mag-Al Plus Susp Liq) 30 ml Q6H PRN PO DYSPEPSIA; Start 11/28/16 at 17:45 Nicotine (Habitrol 21 Mg Patch.24 Hr) 1 patch DAILY T-DERMAL ; Start 11/29/16 at 09:00 Miscellaneous Information 1 HS T-DERMAL ; Start 11/28/16 at 21:00 Quetiapine Fumarate (SEROquel) 12.5 mg BID PO Last administered on 11/28/16t 20:20; Start 11/28/16 at 21:00 Miscellaneous (Pill Splitter) 1 ea UNSCH PRN OTHER SEE LABEL COMMENTS; Start 11/28/16 at 17:45 Social History no smoking or drinking. Physical Exam Vital Signs Vital Signs Date Time Temp Pulse Resp B/P (MAP) Pulse Ox O2 Delivery O2 Flow Rate FiO2 11/29/16 05:49 97.6 61 17 151/70 (97) 97 11/28/16 17:33 97.5 62 18 138/73 (94) Physical Exam GENERAL: This is a well-nourished, well-developed patient, in no apparent distress. SKIN: No rashes, ecchymoses or lesions. Cool and dry. HEAD: Atraumatic. Normocephalic. No temporal or scalp tenderness. EYES: Pupils equal round and reactive. Extraocular motions intact. No scleral icterus. No injection or drainage. ENT: Nose without bleeding, purulent drainage or septal hematoma. Throat without erythema, tonsillar hypertrophy or exudate. Uvula midline. Airway patent. NECK: Trachea midline. No JVD or lymphadenopathy. Supple, nontender, no meningeal signs. CARDIOVASCULAR: Regular rate and rhythm without murmurs, gallops, or rubs. RESPIRATORY: Clear to auscultation. Breath sounds equal bilaterally. No wheezes , rales, or rhonchi. GASTROINTESTINAL: Abdomen soft, non-tender, nondistended. No hepato-splenomegaly , or palpable masses. No guarding. MUSCULOSKELETAL: Extremities without clubbing, cyanosis, or edema. No joint tenderness, effusion, or edema noted. No calf tenderness. Negative Homans sign bilaterally. NEUROLOGICAL: Awake and alert. oriented to person, partly to place and time. Assessment and Plan Assessment and Plan A/P - confusional episode had a recent negative neurological work-up- management per psych. -hypertension; resume Irbesartan and continue to monitor thank you for the consult. Discussed Condition With the patient and RN. Harinder Trivedi MD Nov 29, 2016 11:33
[2016-11-29 12:42] VITALS: BP 134/60; PULSE 70
[2016-11-29] MEDS: LOSARTAN 50 MG TAB PO SCH (12:45)
--- NOTE | 2016-11-29 13:51 | HHI.HP ---
Provisional Diagnosis Admission Date Nov 28, 2016 at 16:50 [place] I. Unspecified psychosis, unspecified major neurocognitive disorder, [place] II. Deferred Certification of Person's Competence To Provide Express and Informed Consent I have personally examined Tarah Sharp , a person being served at [facility] on, Nov 29, 2016 13:39. Express and informed consent means consent voluntarily given in writing, by a competent person, after sufficient explanation and disclosure of the subject matter involved to enable the person to make a knowing and willful decision without any element of force, fraud, deceit, duress, or other form of constraint or coercion. This person is 18 years of age or older, is not now known to be incompetent to consent to treatment with a guardian advocate, and does not have a health care surrogate or proxy currently making medical treatment decisions. I have found this person to be one of the following: [] Competent to provide express and informed consent, as defined above, for voluntary admission to this facility and is competent to provide express and informed consent for treatment. He/she has the consistent capacity to make well reasoned, willful, and knowing decisions concerning his or her medical or mental health treatment. The person fully and consistently understands the purpose of the admission for examination/placement and is fully capable of personally exercising all rights assured [place] [X] Incompetent to provide express and informed consent to voluntary admission, and this is incompetent to provide express and informed consent to treatment. The person must be transferred to involuntary status and a petition for a guardian advocate filed with the Circuit Court. [] Refusing to provide express and informed consent to voluntary admission but is competent to provide express and informed consent for treatment. The person must be discharged or transferred to involuntary status. Form shall be completed within 24 hours of a person's arrival at the receiving facility and filed in the clinical record of each person: 1. Admitted on a voluntary basis 2. Permitted to provide express and informed consent to his/her own treatment 3. Allowed to transfer from involuntary to voluntary status 4. Prior to permitting a person to consent to his or her own treatment after having been previously found incompetent to consent to treatment. History of Present Illness Capacity: Lacks Capacity HPI 11/27/2016 initial interview in [place]: The patient is a 81-year-old woman, domiciled alone in [place], single, without any previous psychiatric history, no previous suicidal attempts, no psychotropics, with medical history of hypertension who was brought to the hospital by [facility] because of confusion. Patient denies any symptoms at this time. Neurological and medical workup is negative at this moment. Consulted to psychiatry due to agitation, paranoia and disorganized behavior. Patient seen for psychiatric evaluation, patient is calm, cooperative and pleasant. Patient does not remember the reason she is in the hospital. In fact, the patient stated that she is in the [employer] and she is surrounded by students. She says that the reason she is here "I have to do some work with my kids". Patient says that today is December [id number]. She does not know who was the mason liner. She is able to repeat 3 words, but unable to recall in 5 minutes later. Her concentration and attention seems to be intact at this moment. She could spell the word world back and forth. She also was able to count backwards, starting 100 and subtracting by 7. Her abstraction, language, semantic memory, she is also to be intact. However executive function impaired, with a clock drawing and trail making test. Patient reports good mood, she says that she is happy to be here. She denies suicidal and homicidal ideation, she denies visual and auditory hallucinations. No delusions or paranoia elicited at this moment. However, as per nurse in charge report, the patient has been agitated, at times verbally hostile, very paranoid about the staff difficult to handle. She denies the use of alcohol and illicit drugs. 11/29/2016 the patient is a 81 years old woman, domiciled in an independent community living, [facility] in [place], single, healthcare by proxy is her brother Nakul Langston, , no previous psychiatric history, no previous hospitalizations, no previous suicidal attempts, transferred to the 2500 units from [place] which she percent the width neurological symptoms that were cleared. Today a psychiatric evaluation patient presents calm, cooperative, pleasantly confused. She reports good mood , patient stated that she feels very happy to be here. Patient is alert, oriented in person, partially oriented in place, she says that we are in [place] in [place], but she doesn't know the precise name of the city. Patient reports that today is November 2018. She described her mood as wonderful, denies hopelessness, denies helplessness, denies difficulty eating or sleeping, denies suicidal and homicidal ideation, denies visual and auditory hallucinations. No paranoia, no delusions, no aggressive behavior or agitation present at this moment. I had a conversation with her brother and sister-in- law. They both live in [place]. They told me that the patient has not been formally diagnosed with dementia. She has been living in an independent living facility, but they don't seem that she is reasonably able to continue living there. They say that they're concerned that the patient is not eating appropriately and taking good care of herself. They understand that it would be beneficial to discharge the patient to a alf. They have described the patient as a very sweet and calm person. 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 Review of Systems Except as stated in HPI: all other systems reviewed are Neg Substance Abuse History Drugs/Alcohol past 12 months Patient denies the use of illicit drugs and alcohol Past Family Social History Coded Allergies: No Known Allergies (Unverified , 11/25/16) Reported Medications Irbesartan (Irbesartan) 150 Mg Tab, 150 MG PO DAILY for Blood Pressure Management, #30 TAB 0 Refills 11/25/16 Current Medications Medications (Trade) Dose Ordered Sig/Lavon Route Start Time Stop Time Status Last Admin (Tylenol) 650 mg Q4H PRN PO 11/28/16 17:45 (Milk Of Magnesia Liq) 30 ml DAILY PRN PO 11/28/16 17:45 (Mag-Al Plus Susp Liq) 30 ml Q6H PRN PO 11/28/16 17:45 (Habitrol 21 Mg Patch.24 Hr) 1 patch DAILY T-DERMAL 11/29/16 09:00 Miscellaneous Information 1 HS T-DERMAL 11/28/16 21:00 (SEROquel) 12.5 mg BID PO 11/28/16 21:00 11/28/16 20:20 (Pill Splitter) 1 ea UNSCH PRN OTHER 11/28/16 17:45 (Cozaar) 50 mg DAILY PO 11/29/16 11:45 11/29/16 12:45 Family Psych History Her mother had dementia, Alzheimer's disease Social History Patient was born and raised in 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 Patient's Strengths (min. 2) Verbal communication, family support Physical Exam No tremors, no EPS, no psychomotor agitation or retardation Vital Signs Vital Signs Date Time Temp Pulse Resp B/P (MAP) Pulse Ox O2 Delivery O2 Flow Rate FiO2 11/29/16 12:42 70 134/60 (84) 11/29/16 05:49 97.6 17 97 I/O 11/29/16 11/29/16 11/29/16 07:59 15:59 23:59 Intake Total 30 ml Balance 30 ml Mental Status Examination Appearance: Appropriate Consciousness: Alert Orientation: Person Motor Activity: Normal gait Speech: Unremarkable Language: Adequate Fund of Knowledge: Inadequate Attention and Concentration: Adequate Memory: Impaired Mood: Appropriate Affect: Appropriate Thought Process & Associations: Intact Thought Content: Appropriate Hallucination Type: None Delusion Type: None Suicidal Ideation: No Suicidal Plan: No Suicidal Intention: No Homicidal Ideation: No Homicidal Plan: No Homicidal Intention: No Insight: Adequate Judgment: Adequate Assessment & Plan Problem List: (1) Unspecified psychosis ICD Codes: F29 - Unspecified psychosis not due to a substance or known physiological condition Assessment & Plan: On psychiatric evaluation patient is calm, cooperative, even pleasant. Patient denies symptomatology of depression, anxiety, molly or psychosis at this moment. Patient denies suicidal and homicidal ideation, she denies visual and auditory hallucinations. Patient presents with marked cognitive deficits as described above which suggests a neurocognitive disorder, she does not have any fluctuation of consciousness or attention deficit at this moment, but significant impairment in recent recall, orientation and executive function. Patient has reportedly been agitated, paranoid, verbally aggressive and paranoid in the medical floor in [place]. Patient seems to be living alone in an independent apartment, has been neglecting herself, no managing her medical medications are properly was probably due to her level of dementia and psychosis. At the moment of this evaluation the patient represents a danger to herself and she benefits of inpatient psychiatric admission for stabilization and safety. We'll start Seroquel 12.5 mg twice a day for psychosis. tankroom worker intervention for collateral information, psychosocial assessment, individual and group activities, and to coordinate a safe discharge planning. Extensive support, motivation and psychoeducation provided. Assessment & Plan Estimated LOS: days Orlando Herrera MD Nov 29, 2016 13:51
[2016-11-29 19:36] VITALS: BP 137/61; PULSE 67; RESP 18; TEMP 97.4
[2016-11-29] MEDS: REMOVE OLD NICOTINE PATCH T-DERMAL SCH (21:00)
[2016-11-30 05:42] VITALS: BP 151/67; PULSE 65; RESP 17; TEMP 97.6
[2016-11-30] MEDS: QUEtiapine FUMARATE 25 MG TAB PO SCH ×3 (09:00→21:00)
[2016-11-30] MEDS: LOSARTAN 50 MG TAB PO SCH (09:00)
[2016-11-30] MEDS: DONEPEZIL HCL 5 MG TAB PO SCH (09:00)
[2016-11-30] MEDS: NICOTINE 21 MG/24 HR PATCH T-DERMAL SCH (09:00)
--- NOTE | 2016-11-30 12:02 | HHI.PR ---
Subjective Remarks in no acute distress. denies pain. no new complaints. d/w the RN and no acute issues over night. Objective Vitals Vital Signs Date Time Temp Pulse Resp B/P (MAP) Pulse Ox O2 Delivery O2 Flow Rate FiO2 11/30/16 05:42 97.6 65 17 151/67 (95) 11/29/16 19:36 97.4 67 18 137/61 (86) 11/29/16 12:42 70 134/60 (84) I/O 11/29/16 11/29/16 11/29/16 11/30/16 11/30/16 11/30/16 07:00 15:00 23:00 07:00 15:00 23:00 Intake Total 30 ml 600 ml 120 ml Balance 30 ml 600 ml 120 ml Intake Oral 30 ml 600 ml 120 ml # Voids 1 3 Objective Remarks GENERAL: This is a well-nourished, well-developed patient, in no apparent distress. CARDIOVASCULAR: Regular rate and regular rhythm without murmurs, gallops, or rubs. RESPIRATORY: Clear to auscultation. Breath sounds equal bilaterally. No wheezes , rales, or rhonchi. GASTROINTESTINAL: Abdomen soft, non-tender, nondistended. Normal, active bowel sounds MUSCULOSKELETAL: Extremities without clubbing, cyanosis, or edema. NEURO: Awake and alert. Medications and IVs Current Medications Acetaminophen (Tylenol) 650 mg Q4H PRN PO Pain 1-5 or Temp >101F; Start at 17:45 Magnesium Hydroxide (Milk Of Magnesia Liq) 30 ml DAILY PRN PO CONSTIPATION; Start 11/28/16 at 17:45 Al Hydrox/Mg Hydrox/Simethicone (Mag-Al Plus Susp Liq) 30 ml Q6H PRN PO DYSPEPSIA; Start 11/28/16 at 17:45 Nicotine (Habitrol 21 Mg Patch.24 Hr) 1 patch DAILY T-DERMAL ; Start 11/29/16 at 09:00 Miscellaneous Information 1 HS T-DERMAL ; Start 11/28/16 at 21:00 Quetiapine Fumarate (SEROquel) 12.5 mg BID PO Last administered on 11/28/16t 20:20; Start 11/28/16 at 21:00 Miscellaneous (Pill Splitter) 1 ea UNSCH PRN OTHER SEE LABEL COMMENTS; Start 11/28/16 at 17:45 Losartan Potassium (Cozaar) 50 mg DAILY PO Last administered on 11/29/16t 12: 45; Start 11/29/16 at 11:45 Donepezil HCl (Aricept) 5 mg DAILY PO ; Start 11/30/16 at 09:00 A/P Assessment and Plan - confusional episode had a recent negative neurological work-up- management per psych. -hypertension; resumed Irbesartan . [facility] will sign off and see her as needed. Harinder Trivedi MD Nov 30, 2016 12:02
[2016-11-30] MEDS ORDERED: diphenhydrAMINE HCL 50 MG CAP PO PRN (15:00)
[2016-11-30] MEDS ORDERED: hydrOXYzine HCL 50 MG TAB PO PRN (15:00)
--- NOTE | 2016-11-30 15:06 | HHI.PYPN ---
Subjective Remarks Patient initially seen by Dr. Peter first in consultation, and then by doing admission H&P. He also did first opinion petition supporting [place] act. And also asked for a health care surrogate and guarded advocate Patient seen by me today with nurse Keith and medical student analisa, patient calm cooperative white female appears somewhat younger than her stated age. While she is fairly well oriented to person place and situation she is confused as to date and time. She states she is a retired non-, sister of Monica, worked in the [place]. She is somewhat confused about the situation that led to her hospitalization the confusion and irritability. She denies prior psychiatric contact her hospitalization. She does have family lives towards the [facility]. In any event at the present time patient does meet criteria for involuntary psychiatric hospitalization under the [place] act I will do second opinion petition supporting [place] act started by Dr. Peter. Will have counselor attempt contact patient's family to get further information. Hopeless to be fairly short stay to determine with the assistance of the patient with family proper referrals and recommendations Chief Complaint: patient confused irritable unable to care for self Review of Systems Except as stated in HPI: all other systems reviewed are Neg Mental Status Examination Appearance: Appropriate Consciousness: Alert Orientation: Person, Situation (patient no she is in the hospital) Motor Activity: Normal gait Speech: Unremarkable Language: Adequate Fund of Knowledge: Inadequate Attention and Concentration: Adequate Memory: Impaired Mood: Appropriate Affect: Appropriate Thought Process & Associations: Intact Thought Content: Appropriate Hallucination Type: None Delusion Type: None Suicidal Ideation: No Suicidal Plan: No Suicidal Intention: No Homicidal Ideation: No Homicidal Plan: No Homicidal Intention: No Insight: Adequate Judgment: Adequate Results Vitals/IOs Vital Signs Date Time Temp Pulse Resp B/P (MAP) Pulse Ox O2 Delivery O2 Flow Rate FiO2 11/30/16 05:42 97.6 65 17 151/67 (95) 11/29/16 05:49 97 Intake and Output 11/30/16 11/30/16 12/01/16 08:00 16:00 00:00 Intake Total 120 ml 240 ml Balance 120 ml 240 ml Assessment & Plan Problem List: (1) Unspecified psychosis ICD Codes: F29 - Unspecified psychosis not due to a substance or known physiological condition Assessment & Plan Estimated LOS: days patient confused somewhat vigilant but overall no behavior problem. For now continue treatment, lift counselors contact patient's family Justification for Cont. Inpt. At this time patient will decompensate to place a lower level of care Discharge Planning We need to work with patient's family consider alternative placement since it appears patient is unable to live independently at this time Request HC Surrog/Guard Advoc?: Yes Burton Conte MD Nov 30, 2016 15:06
[2016-11-30 18:00] VITALS: BP 137/64; PULSE 71; RESP 18; TEMP 97.9; O2SAT 99
[2016-11-30] MEDS: REMOVE OLD NICOTINE PATCH T-DERMAL SCH (21:00)
[2016-12-01 06:00] VITALS: BP 133/63; PULSE 70; RESP 18; TEMP 97.3; O2SAT 100
[2016-12-01] MEDS: DONEPEZIL HCL 5 MG TAB PO SCH (09:00)
[2016-12-01] MEDS: LOSARTAN 50 MG TAB PO SCH (09:00)
[2016-12-01] MEDS: QUEtiapine FUMARATE 25 MG TAB PO SCH ×2 (09:00→20:19)
[2016-12-01] MEDS: NICOTINE 21 MG/24 HR PATCH T-DERMAL SCH (09:00)
--- NOTE | 2016-12-01 11:09 | HHI.PYPN ---
Subjective Remarks Patient seen in day room with medical student analisa, patient calm pleasant with me though continues diffusely confused. Medical student did do a Mini- Mental status exam that she scored at 23 out of 30. She compliant medications. For now continue treatment Chief Complaint: patient confused irritable unable to care for self Review of Systems Except as stated in HPI: all other systems reviewed are Neg Mental Status Examination Appearance: Appropriate Consciousness: Alert Orientation: Person, Situation (patient no she is in the hospital) Motor Activity: Normal gait Speech: Unremarkable Language: Adequate Fund of Knowledge: Inadequate Attention and Concentration: Adequate Memory: Impaired Mood: Appropriate Affect: Appropriate Thought Process & Associations: Intact Thought Content: Appropriate Hallucination Type: None Delusion Type: None Suicidal Ideation: No Suicidal Plan: No Suicidal Intention: No Homicidal Ideation: No Homicidal Plan: No Homicidal Intention: No Insight: Adequate Judgment: Adequate Results Vitals/IOs Vital Signs Date Time Temp Pulse Resp B/P (MAP) Pulse Ox O2 Delivery O2 Flow Rate FiO2 12/01/16 06:00 97.3 70 18 133/63 (86) 100 Assessment & Plan Problem List: (1) Unspecified psychosis ICD Codes: F29 - Unspecified psychosis not due to a substance or known physiological condition Assessment & Plan Estimated LOS: days patient continues confused somewhat disoriented, but no behavioral problems. For now continue treatment. Justification for Cont. Inpt. At this time patient decompensate the placed in the lower level of care Discharge Planning Patient continue somewhat confused though behaviors are, cooperative. Continue to work on placement issues Request HC Surrog/Guard Advoc?: Yes Burton Conte MD Dec 01, 2016 11:09
[2016-12-01 18:00] VITALS: BP 155/76; PULSE 79; RESP 18; TEMP 98.7; O2SAT 100
[2016-12-01] MEDS: REMOVE OLD NICOTINE PATCH T-DERMAL SCH (20:20)
[2016-12-02 05:41] VITALS: BP 148/68; PULSE 69; RESP 16; TEMP 97.3; O2SAT 96
[2016-12-02] MEDS: NICOTINE 21 MG/24 HR PATCH T-DERMAL SCH (09:00)
[2016-12-02] MEDS: QUEtiapine FUMARATE 25 MG TAB PO SCH ×2 (09:28→20:35)
[2016-12-02] MEDS: DONEPEZIL HCL 5 MG TAB PO SCH (09:28)
[2016-12-02] MEDS: LOSARTAN 50 MG TAB PO SCH (09:28)
--- NOTE | 2016-12-02 10:17 | HHI.PYPN ---
Subjective Remarks Patient seen in dayroom with nurse Jennie and family practice resident nic , chart review. Patient calm pleasant with me continue somewhat diffusely confused. She was served her [place] act papers today interest totally dumbfounded by them. She barely recognize me from her visit yesterday. She has been compliant with her medication. This may feel patient's diagnosis might be more appropriately stated has a dementia versus psychosis. We'll thus change it to such Chief Complaint: patient confused irritable unable to care for self Review of Systems Except as stated in HPI: all other systems reviewed are Neg Mental Status Examination Appearance: Appropriate Consciousness: Alert Orientation: Person, Situation (patient no she is in the hospital) Motor Activity: Normal gait Speech: Unremarkable Language: Adequate Fund of Knowledge: Inadequate Attention and Concentration: Adequate Memory: Impaired Mood: Appropriate Affect: Appropriate Thought Process & Associations: Intact Thought Content: Appropriate Hallucination Type: None Delusion Type: None Suicidal Ideation: No Suicidal Plan: No Suicidal Intention: No Homicidal Ideation: No Homicidal Plan: No Homicidal Intention: No Insight: Adequate Judgment: Adequate Results Vitals/IOs Vital Signs Date Time Temp Pulse Resp B/P (MAP) Pulse Ox O2 Delivery O2 Flow Rate FiO2 12/02/16 05:41 97.3 69 16 148/68 (94) 96 Intake and Output 12/02/16 12/02/16 12/02/16 07:59 15:59 23:59 Intake Total 120 ml Balance 120 ml Assessment & Plan Problem List: (1) Unspecified psychosis ICD Codes: F29 - Unspecified psychosis not due to a substance or known physiological condition (2) Dementia ICD Codes: F03.90 - Unspecified dementia without behavioral disturbance Assessment & Plan Estimated LOS: days patient remains confused showing some increased signs of dementia. Though she is pleasant with me. Patient was pleased and gave a small smile when I addressed her as "sister Tarah" Justification for Cont. Inpt. At this time patient decompensate to placed on the lower level of care Discharge Planning It appears that may be a placement available for this lady with in the next 1-2 days perhaps at [facility]. Otherwise patient scheduled for [facility] tomorrow Request HC Surrog/Guard Advoc?: Yes Problem Qualifiers (1) Dementia: Qualified Codes: G30.8 - Other Alzheimer's disease; F02.81 - Dementia in other diseases classified elsewhere with behavioral disturbance Burton Conte MD Dec 02, 2016 10:17
[2016-12-02 18:39] VITALS: BP 106/49; PULSE 75; RESP 16; TEMP 98.6; O2SAT 96
[2016-12-02] MEDS: REMOVE OLD NICOTINE PATCH T-DERMAL SCH (20:34)
[2016-12-03 06:18] VITALS: BP 133/60; PULSE 77; RESP 16; TEMP 97.8; O2SAT 97
[2016-12-03] MEDS: DONEPEZIL HCL 5 MG TAB PO SCH (09:00)
[2016-12-03] MEDS: NICOTINE 21 MG/24 HR PATCH T-DERMAL SCH (09:00)
[2016-12-03] MEDS: QUEtiapine FUMARATE 25 MG TAB PO SCH (09:27)
[2016-12-03] MEDS: LOSARTAN 50 MG TAB PO SCH (09:29)
[2016-12-03] MEDS ORDERED: ARIC5TAB2 PO (10:16)
[2016-12-03] MEDS ORDERED: QUET1TAB7 PO (10:16)
[2016-12-03] MEDS ORDERED: COZA50TA PO (10:16)
--- NOTE | 2016-12-03 10:22 | HHI.DS ---
Psychiatry Discharge Summary Inpatient Psychiatric care?: Yes Advance Directive: No Reason Not Provided: patient declined Mental Health AdvanceDirective: No Health Care Proxy: No Admission Admission Date Nov 28, 2016 at 16:50 Admission Diagnosis: (1) Dementia ICD Code: F03.90 - Unspecified dementia without behavioral disturbance Brief History 11/27/2016 initial interview in [place]: The patient is a 81-year-old woman, domiciled alone in [place], single, without any previous psychiatric history, no previous suicidal attempts, no psychotropics, with medical history of hypertension who was brought to the hospital by [facility] because of confusion. Patient denies any symptoms at this time. Neurological and medical workup is negative at this moment. Consulted to psychiatry due to agitation, paranoia and disorganized behavior. Patient seen for psychiatric evaluation, patient is calm, cooperative and pleasant. Patient does not remember the reason she is in the hospital. In fact, the patient stated that she is in the [employer] and she is surrounded by students. She says that the reason she is here "I have to do some work with my kids". Patient says that today is December [id number]. 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 She is able to repeat 3 words, but unable to recall in 5 minutes later. Her concentration and attention seems to be intact at this moment. She could spell the word world back and forth. She also was able to count backwards, starting 100 and subtracting by 7. Her abstraction, language, semantic memory, she is also to be intact. However executive function impaired, with a clock drawing and trail making test. Patient reports good mood, she says that she is happy to be here. She denies suicidal and homicidal ideation, she denies visual and auditory hallucinations. No delusions or paranoia elicited at this moment. However, as per nurse in charge report, the patient has been agitated, at times verbally hostile, very paranoid about the staff difficult to handle. She denies the use of alcohol and illicit drugs. 11/29/2016 the patient is a 81 years old woman, domiciled in an independent community living, [facility] in [place], single, healthcare by proxy is her brother Nakul Langston, , no previous psychiatric history, no previous hospitalizations, no previous suicidal attempts, transferred to the [address] units from [place] which she percent the width neurological symptoms that were cleared. Today a psychiatric evaluation patient presents calm, cooperative, pleasantly confused. She reports good mood , patient stated that she feels very happy to be here. Patient is alert, oriented in person, partially oriented in place, she says that we are in [place] in [place], but she doesn't know the precise name of the city. Patient reports that today is November 2018. She described her mood as wonderful, denies hopelessness, denies helplessness, denies difficulty eating or sleeping, denies suicidal and homicidal ideation, denies visual and auditory hallucinations. No paranoia, no delusions, no aggressive behavior or agitation present at this moment. I had a conversation with her brother and sister-in- law. They both live in [place]. They told me that the patient has not been formally diagnosed with dementia. She has been living in an independent living facility, but they don't seem that she is reasonably able to continue living there. They say that they're concerned that the patient is not eating appropriately and taking good care of herself. They understand that it would be beneficial to discharge the patient to a correction. They have described the patient as a very sweet and calm person. 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 Tobacco Use In Past 30 Days: No Tobacco Past 30 Days Alcohol Use: Monthly or Less Hospital Course Patient's hospital course was uneventful, she adopted readily and easily to the milieu, was no behavioral problems, was compliant with medication, the auditory or visual perceptual abnormalities resolved. Though her diffuse confusion remain. She now denies suicidality homicidality voices or visions. Counselor has been talked with patient's brother. They're driving here from the [place] area today. They wish the patient to be discharged to them today so they can transfer her back to their area find appropriate placement and mental health follow-up in the [place] area. I agree with that. Patient agrees with that also. Thus patient will be discharged today to her brother with Rx 1 month family to make follow-up appointments [facility] for residential placement and mental health follow-up Results Blood Pressure 133 / 60 Vital Signs Date Time Temp Pulse Resp B/P (MAP) Pulse Ox O2 Delivery O2 Flow Rate FiO2 12/03/16 06:18 97.8 77 16 133/60 (84) 97 Urine toxicology negative Summary of Procedures None done Pending results at discharge: No Medications # of Antipsychotic meds at D/C: 1 Approp Antipsych med options 1 - Minimum of three failed multiple trials of monotherapy. 2 - Documented plan to taper to monotherapy due to previous use of multiple meds OR cross-taper in progress at D/C. 3 - Documentation of augmentation of Clozapine. 4 - Justification other than those listed in allowable values 1-3, document here : Discharge Discharge Date: Dec 03, 2016 Discharge Diagnosis: (1) Dementia Diagnosis: Principal ICD Code: F03.90 - Unspecified dementia without behavioral disturbance Pt Condition on Discharge: Stable Discharge Disposition: Discharge Home Discharge Instructions Diet Instructions: As Tolerated, No Restrictions Activities you can perform: Regular-No Restrictions Scheduled Appointment: Dr [facility] Appointment Date: Dec 04, 2016 Appointment Time: 12:30pm Discharge Time > 30 minutes Mental Status Examination Appearance: Appropriate Consciousness: Alert Orientation: Person, Situation (patient no she is in the hospital) Motor Activity: Normal gait Speech: Unremarkable Language: Adequate Fund of Knowledge: Inadequate Attention and Concentration: Adequate Memory: Impaired Mood: Appropriate Affect: Appropriate Thought Process & Associations: Intact Thought Content: Appropriate Hallucination Type: None Delusion Type: None Suicidal Ideation: No Suicidal Plan: No Suicidal Intention: No Homicidal Ideation: No Homicidal Plan: No Homicidal Intention: No Insight: Adequate Judgment: Adequate Discharge/Advance Care Plan Health Problems: (1) Unspecified psychosis (2) Dementia Goals to promote your health * To prevent worsening of your condition and complications * To maintain your health at the optimal level Directions to meet your goals Take your medications as prescribed Follow your dietary instruction Follow activity as directed Keep your appointments as scheduled Take your immunizations and boosters as scheduled If your symptoms worsen call your PCP, if no PCP go to Urgent Care Center or Emergency Room For 07/09 questions related to your inpatient stay or results of tests pending at discharge, please contact Dr. Burton Conte at Smoking is Dangerous to Your Health. Avoid second hand smoking Problem Qualifiers (1) Dementia: Qualified Codes: G30.8 - Other Alzheimer's disease; F02.81 - Dementia in other diseases classified elsewhere with behavioral disturbance Burton Conte MD Dec 03, 2016 10:22
== END 2016-12-03 13:20 | disposition home or self-care (01) | DRG 57 ==
LOC: H250 16:50
PROVIDERS: ADMIT Psychiatry & Neurology Psychiatry; ATTEND Psychiatry & Neurology Psychiatry
DX: G30.9 Alzheimer's disease, unspecified (principal); F02.80 Dementia in other diseases classified elsewhere, unspecified severity, without behavioral disturbance, psychotic disturbance, mood disturbance, and anxiety; I10 Essential (primary) hypertension; Z81.8 Family history of other mental and behavioral disorders; Z82.0 Family history of epilepsy and other diseases of the nervous system
CPT/HCPCS: Q0163